=== PATIENT | male | born 1955 | race Caucasian/White ===

== ENCOUNTER 2023-05-14 05:09 | Day surgery (SDC) | payer MEDICARE, BC ==
[~2023-05-14] VITALS: Ht 185.4 cm; Wt 95.3 kg
[2023-05-14] MEDS ORDERED: POLYMYXIN B SULFATE 500,000 UNITS ONE (05:45)
[2023-05-14] MEDS ORDERED: ANESTHESIA TRAY IN PYXIS 1 EA TRAY MC ONE (05:46)
[2023-05-14] MEDS ORDERED: BUPIVACAINE 0.5 % PF 150 MG/30 ML VIAL ONE (05:46)
[2023-05-14] MEDS ORDERED: ROCURONIUM BROMIDE 50 MG/5 ML ONE (06:14)
[2023-05-14] MEDS ORDERED: MIDAZOLAM HCL 2 MG/2ML VIAL ONE (06:14)
[2023-05-14] MEDS ORDERED: FENTANYL PF 100MCG/2ML AMPUL ONE (06:14)
[2023-05-14] MEDS ORDERED: ROPIVACAINE HCL 0.5% 5 MG/ML 30ML VIAL ONE (06:25)
[2023-05-14] MEDS ORDERED: TRANEXAMIC ACID 3,000 MG in SODIUM CHLORIDE IRRIG SOLUTION 70 ML IR ONE (07:30)
[2023-05-14] MEDS ORDERED: GLYCOPYRROLATE 0.2 MG/ML VIAL ONE (08:50)
[2023-05-14] MEDS ORDERED: ZOLPIDEM TARTRATE 5 MG TABLET PO PRN (10:00)
[2023-05-14] MEDS ORDERED: BISACODYL SUPP (10 MG) 10 MG/SUPP.RECT SUPP.RECT RC PRN (10:00)
[2023-05-14] MEDS ORDERED: ONDANSETRON HCL/PF 4 MG/2 ML VIAL IV PRN (10:00)
[2023-05-14] MEDS ORDERED: HYDROCODONE/APAP 5/325MG TABLET PO PRN (10:00)
[2023-05-14] MEDS ORDERED: IV D5/0.45 NACL 1,000 ML IV PRN (10:00)
[2023-05-14] MEDS ORDERED: ACETAMINOPHEN 325 MG TABLET PO PRN (10:00)
[2023-05-14] MEDS ORDERED: LEVO112T7 PO (10:08)
[2023-05-14] MEDS ORDERED: OXYC1TAB12 PO (10:08)
[2023-05-14] MEDS ORDERED: ASPI-992 PO (10:08)
[2023-05-14] MEDS ORDERED: AMLO-212 PO (10:08)
[2023-05-14] MEDS ORDERED: ROSU10TA29 PO (10:08)
[2023-05-14] MEDS ORDERED: DOCUSATE SODIUM 100 MG CAPSULE PO PRN (11:00)
[2023-05-14] MEDS ORDERED: SENNOSIDES 8.6 MG TABLET PO PRN ×2 (11:00)
[2023-05-15] MEDS ORDERED: ASPIRIN 325 MG TABLET PO SCH (09:00)
== END 2023-05-14 18:00 | disposition home or self-care (01) ==
LOC: DS 05:09 → MED 05:10 → UNDOADMIN 05:10 → MED 09:46 → UNDODISIN 13:20 → DS 18:00
PROVIDERS: ATTEND Specialist
DX: M19.011 Primary osteoarthritis, right shoulder (principal); E03.9 Hypothyroidism, unspecified; I10 Essential (primary) hypertension; N40.0 Benign prostatic hyperplasia without lower urinary tract symptoms
CPT/HCPCS: 23430; 23472; 36415; 86850; 87081; A4217; A6209; C1776; J0690; J1100; J1885; J2250; J2405; J2704; J2795; J3010; J3490; J7030; G0378